=== PATIENT | male | born 2005 | race Caucasian/White ===

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

== ENCOUNTER 2024-03-26 17:19 | Emergency (ER) | payer SELFPAY ==
[2024-03-26 17:19] VITALS: BP 128/74; PULSE 76; RESP 16; TEMP 36.6; O2SAT 97; BMI 22.5
== END 2024-03-26 19:40 | disposition left against medical advice (07) ==
LOC: ED 20:01
PROVIDERS: PCP Pediatrics
DX: Z00.00 Encounter for general adult medical examination without abnormal findings (principal)